=== PATIENT | male | born 1975 | race Caucasian/White ===

== ENCOUNTER → 2016-09-07 | Emergency (ER) | payer OTHER ==
[~2016-09-07] VITALS: Ht 193 cm; Wt 97.9 kg
[~2016-09-07] MED LIST: TRM50T PO
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
[2016-09-07 10:20] VITALS: BP 145/68
== END | disposition home or self-care (01) ==
LOC: EDUNIT# 08:02 → ED 08:06
DX: S83.412A Sprain of medial collateral ligament of left knee, initial encounter (principal); X50.1XXA Overexertion from prolonged static or awkward postures, initial encounter; Y93.89 Activity, other specified; Y92.009 Unspecified place in unspecified non-institutional (private) residence as the place of occurrence of the external cause
CPT/HCPCS: 99283; L1830; 99282